=== PATIENT | female | born 1945 | race Caucasian/White ===

== ENCOUNTER 2018-04-08 04:45 | Inpatient (IN) ==
--- NOTE | 2018-03-27 12:49 | Anesthesiology Consultation ---
Date of Service March 27, 2018 Assessment & Plan (1) Encounter for pre-operative examination: Plan: *pt with limited neck extension--possible difficult intubation. Chart Review Chart Review: Acceptable Risk for Surgery and Patient seen in Pre Admission Testing Teaching & Discussion Instructed NPO after midnight before surgery, except medications with 15 cc of water. Medication instructions provided according to the PAT guidelines. History Surgery Operation Date: 04/08/18 08:45 Proposed Procedures p Right Anterior Total Hip Arthroplasty - Jaspal Carroll DO Height/Weight Height: 5 ft 3 in Weight: 69.4 kg Allergies Allergy/AdvReac Type Severity Reaction Status Date / Time codeine Allergy Unknown RASH Verified 03/24/18 11:02 Medications Home Medications Medication Instructions Recorded Confirmed Last Taken ascorbic acid (vitamin C) [Vitamin 1 g PO 03/24/18 03/24/18 Unknown C] aspirin [Aspir-81] 81 mg PO 03/24/18 03/24/18 Unknown biotin 1 mg PO QA 03/24/18 03/24/18 Unknown calcium carbonate-vitamin D3 1 tab PO 03/24/18 03/24/18 Unknown [Calcium 500 + D] cranberry 400 mg PO QAM 03/24/18 03/24/18 Unknown glucosamine-chondroitin 1 tab PO QA 03/24/18 03/24/18 Unknown multivitamin 1 cap PO QAM 03/24/18 03/24/18 Unknown omega 4-qkt-pau-fish oil [Fish Oil] 1 cap PO QAM 03/24/18 03/24/18 Unknown vitamin E 400 unit PO QA 03/24/18 03/24/18 Unknown zinc 50 mg PO QA 03/24/18 03/24/18 Unknown Past Medical History Medical History History of breast cancer S/P LUMPECTOMY AND RADIATION JAN 2003. Osteoarthritis Past Surgical History Surgical History History of arthroscopy B/L KNEES History of cataract extraction with lens replacement B/L History of foot surgery B/L BUNIONECTOMY History of hysterectomy History of lumpectomy Past Anesthesia History No Hx of Anesthesia Complications and No Family Hx of Anesthesia Complications *PATIENT WITH VERY LIMITED NECK EXTENSION, POSSIBLE DIFFICULT INTUBATION. History of PONV Yes (remote, no issues with more recent surgeries) Motion Sickness Screening History of Motion Sickness: No Social History Smoking Status: Never smoker Do You Dip or Chew Tobacco: No Hx Alcohol Use: Yes Alcohol type: wine alcohol intake frequency: a few times a week Hx Substance Use: No substance use type: does not use Exercise / Class Metabolic Activity II 4-5 Yardwork/Stairs/Walk up hill (no SOB or CP with stairs, limited 2/2 pain recently) Review of Systems Pt denies any recent chest pain, shortness of breath, palpitations, cough, fever or URI. Physical Exam Vital Signs BP: 128/72 P: 80bpm SPO2: 96% RA T: 98.0 F R: 12 ENMT Mouth: + dentures (two partial upper dentures) and + dental restorations (few crowns); no chipped teeth and no loose teeth Thyromental Distance: > or= 3.5 Finger Breadths (3.5) Mallampati Class: I Neck normal visual inspection and + limited neck extension (very limited) Respiratory normal respiratory effort Auscultation: lungs clear to auscultation bilaterally Cardiovascular Rate/Rhythm: regular rate and regular rhythm Heart Sounds: no murmur Vessels: no carotid bruit Extremities: no edema Testing Electrocardiogram Date: 03/27/18 Findings: + NSR @ (69) Chest X-Ray Date: 03/27/18 Findings: + NAD Laboratory Results 03/27/18 13:11 03/27/18 13:11 Blood Type A Positive 03/27/18 13:11 Antibody Screen NEGATIVE 03/27/18 13:11 PT 10.1 Seconds (9.0-12.0) 03/27/18 13:11 INR 1.0 (0.9-1.1) 03/27/18 13:11 APTT 25.2 Seconds (21.0-31.0) 03/27/18 13:11 Hemoglobin A1c 5.7 % (4.5-5.6) H 03/27/18 13:11 Urine Color Yellow 03/27/18 13:11 Urine Appearance Clear (Clear) 03/27/18 13:11 Urine pH 7.5 (4.5-7.5) 03/27/18 13:11 Ur Specific [place] 1.013 (1.000-1.030) 03/27/18 13:11 Urine Protein Negative (Negative) 03/27/18 13:11 Urine Glucose (UA) Negative (Negative) 03/27/18 13:11 Urine Ketones Negative (Negative) 03/27/18 13:11 Urine Nitrite Negative (Negative) 03/27/18 13:11 Ur Leukocyte Esterase Negative (Negative) 03/27/18 13:11
--- NOTE | 2018-03-27 13:01 | PAT Medication Instructions ---
Medication Instructions Date of Service March 27, 2018 Home Medications ascorbic acid (vitamin C) 1 g PO HS aspirin [Aspir-81] 81 mg PO HS biotin 1 mg PO QAM calcium carbonate-vitamin D3 1 tab PO HS cranberry 400 mg PO QAM glucosamine-chondroitin 1 tab PO QAM multivitamin 1 cap PO QAM omega 6-kik-nwk-fish oil [Fish Oil] 1 cap PO QAM vitamin E 400 unit PO QAM zinc 50 mg PO QAM STOP taking 2 weeks before surgery cranberry 400 mg PO QAM glucosamine-chondroitin 1 tab PO QAM omega 1-bgf-drm-fish oil [Fish Oil] 1 cap PO QAM vitamin E 400 unit PO QAM If surgery is within 2 weeks, stop taking as soon as possible. DO NOT take the morning of surgery biotin 1 mg PO QAM multivitamin 1 cap PO QAM zinc 50 mg PO QAM Take evening before surgery ascorbic acid (vitamin C) 1 g PO HS aspirin [Aspir-81] 81 mg PO HS calcium carbonate-vitamin D3 1 tab PO HS Other Notes If you have any questions please call us at [phone] or [phone] or [phone] or [phone]
--- NOTE | 2018-03-27 13:45 | XRay Report ---
TWO VIEW CHEST CLINICAL HISTORY: Preoperative examination. FINDINGS: PA and lateral chest radiographs are obtained. No prior studies are available for compariso n at the time of dictation. The examination is degraded by portable technique and patient rotation. The cardiomediastinal silhouette is unremarkable. No airspace consolidation or pleural effusion is id entified. There is no pneumothorax. The skeletal structures are osteopenic. Degenerative change is no sammi throughout the thoracic spine. The bony thorax appears intact. IMPRESSION: No active disease in the chest. Electronically signed by: Jovanny Oneal M.D. 03/27/2018 1:43 PM
[2018-03-27 13:49] LABS: Basophils # (auto) 0.03 K/uL (0-0.2); Basophils % (auto) 0.5 %; Eosinophils # (auto) 0.11 K/uL (0-0.5); Eosinophils % (auto) 1.7 %; Hemoglobin 14.8 g/dL (12.0-16.0); Immature Granulocytes # (auto) 0.02 K/uL (0.00-0.02); Immature Granulocytes % (auto) 0.3 %; Lymphocytes % (auto) 26.5 %; Mean Corpuscular Hgb Conc 33.6 g/dL (32-36); Mean Corpuscular Volume 89.1 fL (80-100); Mean Platelet Volume 9.5 fL (7.4-10.4); Monocytes # (auto) 0.62 K/uL (0.11-0.59); Monocytes % (auto) 9.7 %; Neutrophils # (auto) 3.93 K/uL (1.4-6.5); Neutrophils % (auto) 61.3 %; Platelet Count 356 K/uL (130-400); RDW Coefficient of Variation 12.7 % (11.5-14.5); RDW Standard Deviation 41.2 fL (36.4-46.3); Red Blood Count 4.94 M/uL (4.2-5.4); White Blood Count 6.41 K/uL (4.8-10.8)
[2018-03-27 13:58] LABS: Appearance Urine Clear (Clear); Bilirubin Urine Negative (Negative); Color Urine Yellow; Glucose Urine UA Negative (Negative); Ketones Urine Negative (Negative); Leukocyte Esterase Urine Negative (Negative); Nitrite Urine Negative (Negative); Protein Urine Negative (Negative); Specific Gravity Urine 1.013 (1.000-1.030); Urobilinogen Urine Negative (Negative); pH Urine 7.5 (4.5-7.5)
[2018-03-27 14:00] LABS: Partial Thromboplastin Time 25.2 Seconds (21.0-31.0); Prothrombin Time 10.1 Seconds (9.0-12.0)
[2018-03-27 14:25] LABS: Estimated Average Glucose 117 mg/dl
[2018-03-27 15:12] LABS: Albumin Level 3.6 gm/dl (3.4-5.0); BUN Creatinine Ratio 17.5 (10-20); Calcium 8.9 mg/dl (8.5-10.1); Creatinine Clr Calc Pharmacy 66.1 ml/min; Est GFR (African American) 95.1; Est GFR (Non-African American) 82.1; Potassium 3.9 mmol/L (3.5-5.1)
--- NOTE | 2018-04-07 15:10 | History & Physical Report ---
Date of Service April 07, 2018 Assessment & Plan (1) Degenerative joint disease (DJD) of hip: I have indicated the patient for right anterior total hip replacement. The risks, benefits and complications of surgery were explained to the patient which include but not limited to infection, acute blood loss, DVT/PE, injury to nerves, vessels, bone, soft tissue, arthrofibrosis, chronic pain, failure of the prosthesis, hip dislocation, leg length discrepancy, need for additional surgery, cardiac and pulmonary events and . The patient wished to proceed with surgery and informed consent was obtained at this time. We will plan for ASA BID post-operatively for DVT prophylaxis. Upon discharge the patient will be discharged home with home health services. Appropriate clearances by PCP were obtained. History of Present Illness Chief Complaint: Right hip pain/djd Primary Care Provider: Sukhjinder Winn The patient is a 72 year old female who presents with complaints of severe right hip pain and DJD. The patient has failed outpatient conservative treatments to this point which included NSAIDs, IA corticosteroid injections, home exercise/walking program. The patient's pain and limited function have progressed to the point where they severely hinder their activities of daily living and they no longer tolerate exercise programs. They are requesting to proceed with total hip replacement surgery. Allergies Allergy/AdvReac Type Severity Reaction Status Date / Time codeine Allergy Unknown RASH Verified 04/08/18 06:01 Home Medications Home Medications Medication Instructions Recorded Confirmed Type ascorbic acid (vitamin C) [Vitamin 1 g PO 03/24/18 04/08/18 History C] aspirin [Aspir-81] 81 mg PO 03/24/18 04/08/18 History biotin 1 mg PO REPLACED BY [facility] 03/24/18 04/08/18 History calcium carbonate-vitamin D3 1 tab PO 03/24/18 04/08/18 History [Calcium 500 + D] cranberry 400 mg PO REPLACED BY [facility] 03/24/18 04/08/18 History glucosamine-chondroitin 1 tab PO REPLACED BY [facility] 03/24/18 04/08/18 History multivitamin 1 cap PO REPLACED BY [facility] 03/24/18 04/08/18 History omega 1-fkt-lqg-fish oil [Fish Oil] 1 cap PO REPLACED BY [facility] 03/24/18 04/08/18 History vitamin E 400 unit PO REPLACED BY [facility] 03/24/18 04/08/18 History zinc 50 mg PO REPLACED BY [facility] 03/24/18 04/08/18 History Past Med/Surg History Medical History History of breast cancer S/P LUMPECTOMY AND RADIATION JAN 2003. Osteoarthritis Surgical History History of arthroscopy B/L KNEES History of cataract extraction with lens replacement B/L History of foot surgery B/L BUNIONECTOMY History of hysterectomy History of lumpectomy Social History Current Living Situation: Alone Other Information That Helps Us Care for You: No Feels Safe at Home: Yes Safety Concerns: Feels Safe At This Time Smoking Status: Never smoker Do You Dip or Chew Tobacco: No Hx Alcohol Use: Yes Alcohol type: wine Alcohol Intake Frequency: a few times a week Hx Substance Use: No Beliefs That Will Affect Care: None Preferred Language: Yemeni Communication Ability: Effective Director Report Required: No Review of Systems All systems reviewed & are unremarkable except as noted in HPI & below Physical Exam 2 Physical Exam: RLE NVSI +EHL/FHL/TA/GS SILT grossly, +2 DP pulse, compartments soft NT, limited painful ROM of the hip. Constitutional: WD/WN, vitals as above Eyes: PERRL, conjunctivae normal, anicteric sclerae Neck: trachea midline, no thyromegaly Respiratory: normal respiratory effort, lungs clear to auscultation Cardiovascular: RRR, no murmur, no edema Gastrointestinal (Abdomen): normal bowel sounds, soft, nontender, no hepatosplenomegaly Musculoskeletal: no cyanosis or clubbing, extremities motor strength 5/5 Skin: no rashes, warm and dry Neurologic: patellar DTR's 2+ bilat, sensation intact Psychiatric: A+Ox3, euthymic affect Lymphatic: no cervical or axillary lymphadenopathy Results & Data Diagnostic Findings Multiple views of the hip demonstrates severe DJD with complete loss of the joint space. +osteophytes, +sclerosis, +subchondral cysts.
[2018-04-08] MEDS: LR 500ML BOLUS, THEN 15ML/HR IV SCH ×4 (05:40→17:00)
[2018-04-08] MEDS ORDERED: TRANEXAMIC ACID 1,000 MG **IV Pre-op IV SCH (06:00)
[2018-04-08] MEDS ORDERED: ROPIVACAINE 0.5% HCL/PF 150 MG, BUPIVACAINE 0.5% MPF 30 ML, EPINEPHrine 30MG/30ML (OR U... INFIL SCH (06:00)
[2018-04-08] MEDS ORDERED: CEFAZOLIN 1000MG 1,000 MG/7.5 ML SYR IV SCH (06:00)
[2018-04-08] MEDS ORDERED: CeleBREX 200 MG CAP PO SCH (06:00)
[2018-04-08] MEDS ORDERED: ACETAMINOPHEN 500 MG TAB PO SCH (06:00)
[2018-04-08] MEDS ORDERED: FAMOTIDINE 20 MG TAB PO SCH (06:00)
[2018-04-08] MEDS ORDERED: dexAMETHasone 4 MG TAB PO SCH (06:00)
[2018-04-08] MEDS ORDERED: GABAPENTIN 300 MG PO SCH (06:00)
[2018-04-08] MEDS ORDERED: BUPIVACAINE 0.5 % 5 MG/1 ML PF 10ML VIAL ONE (06:22)
[2018-04-08] MEDS ORDERED: TRANEXAMIC ACID 1,000 MG **IV Intra-op IV SCH (06:30)
[2018-04-08] MEDS ORDERED: PROPOFOL IV EMULSION 10 MG/ML 20 ML VIAL IV ONE ×3 (06:41→09:45)
[2018-04-08] MEDS ORDERED: MIDAZOLAM HCL 1 MG/ML 2ML VIAL ONE (06:42)
[2018-04-08] MEDS ORDERED: fentaNYL citrate 100 MCG/2 ML VIAL ONE (06:42)
[2018-04-08] MEDS ORDERED: PHENYLEPHRINE 100MCG/ML 5ML SYR IV PRN (06:49)
[2018-04-08] MEDS ORDERED: ePHEDrine sulfate 50 MG/ML AMP IV PRN (06:49)
[2018-04-08] MEDS ORDERED: KETOROLAC TROMETHAMINE 15 MG/ML VIAL IV PRN (06:49)
[2018-04-08] MEDS ORDERED: ONDANSETRON INJ 2 MG/ML 2 ML VIAL IV PRN ×2 (06:49→11:28)
[2018-04-08] MEDS ORDERED: ATROPINE SULFATE 0.1 MG/ML 10ML SYR IV PRN (06:49)
[2018-04-08] MEDS ORDERED: HYDROmorphone INJ 1 MG/ML SYRINGE IV PRN (06:49)
[2018-04-08] MEDS ORDERED: BACITRACIN INJ 50,000 UNIT VIAL ONE (06:53)
[2018-04-08] MEDS ORDERED: POVIDONE-IODINE OP SOLN 30 ML BTL ONE (06:53)
[2018-04-08] MEDS ORDERED: ORTHO JOINT ANESTHETIC ONE (06:53)
--- NOTE | 2018-04-08 07:10 | History & Physical Bridge Note ---
Date of Service April 08, 2018 History & Physical Bridge Note I have examined the patient, reviewed the History & Physical and in the interval since the performance of the History & Physical I have noted the following changes of clinical significance: no changes noted
[2018-04-08] MEDS ORDERED: ePHEDrine sulfate 50 MG/ML SYR ONE (09:08)
--- NOTE | 2018-04-08 09:54 | Fluoroscopy Report ---
INTRAOPERATIVE RADIOGRAPHS CLINICAL HISTORY: Right hip arthroplasty. Fluoroscopy time: 103 seconds. FINDINGS: 2 spot fluoroscopic views of the right hip from an arthroplasty procedure are presented. A bipolar right hip arthroplasty is in near anatomic alignment. 2 cortical lag screws transfix the acet abular cup. There is no evidence of fracture on these fluoroscopic views. Arthritic changes noted in the left hip. IMPRESSION: Intraoperative images from a right hip arthroplasty procedure as above. Electronically signed by: Jovanny Oneal M.D. 04/08/2018 9:53 AM
--- NOTE | 2018-04-08 09:58 | Post Operative Brief Note ---
Immediate Post Op Note v1 Date of Surgery April 08, 2018 Pre & Post Diagnosis Operation Date: 04/08/18 07:15 Pre-Op Diagnosis: Right Hip Osteoarthritis Post-Op Diagnosis: Right Hip Osteoarthritis Procedure Operation Date: 04/08/18 07:15 Actual Procedures p Right Anterior Total Hip Arthroplasty(Right) - Jaspal Carroll DO Surgeon Jaspal Carroll DO Meal Temperer Andre Gibson Estimated Blood Loss 75 Findings Consistent with Post-Op Diagnosis Fluids 800 Specimens femoral head Drains Hemovac Drain Anesthesia Type Spinal MAC Complications none Disposition Disposition: Recovery Room Overlapping Procedure I was present for: the critical portions of procedure. I was immediately available: during the entire case. Back up surgeon: was not required during procedure.
--- NOTE | 2018-04-08 11:16 | Anesthesiology Progress Note ---
Date of Service April 08, 2018 Anesthesia Post Procedure Vital Signs Vital Signs: Temp Pulse Pulse Resp BP Pulse Ox 04/08/18 11:00 36.3 C L 85 19 131/65 97 04/08/18 10:50 84 19 123/55 L 97 04/08/18 10:40 85 27 H 130/67 100 04/08/18 10:30 85 21 136/66 100 04/08/18 10:21 36.0 C L 91 H 18 126/67 94 04/08/18 06:12 37 C 71 18 145/79 H Pain Intensity Right Hip: Pain Intensity: 7 Notes Mental Status: alert / awake / arousable Patient Amnestic to Procedure: Yes Nausea / Vomiting: adequately controlled Pain: adequately controlled Airway Patency, RR, SpO2: stable & adequate BP & HR: stable & adequate Hydration State: stable & adequate Neuraxial Anesthesia: was administered and sensory block is resolving Anesthetic Complications: no major complications apparent
--- NOTE | 2018-04-08 11:25 | XRay Report ---
XR hip 1V RT w pelvis CLINICAL HISTORY: Postoperative evaluation. COMPARISON: None FINDINGS: Alignment of the total right hip arthroplasty is anatomic. There is no periprosthetic frac ture or unexpected radiopaque foreign body. There are 2 acetabular screws. IMPRESSION: Expected findings following total right hip arthroplasty. Electronically signed by: Madi Gonzales M.D. 04/08/2018 11:23 AM
[2018-04-08] MEDS ORDERED: BISACODYL 10 MG SUPP PR PRN (11:28)
[2018-04-08] MEDS ORDERED: NALOXONE HCL 0.4 MG/1 ML VIAL/CARP IV PRN (11:28)
[2018-04-08] MEDS ORDERED: MAGNESIUM HYDROXIDE SUSP 30 ML UDC PO PRN (11:28)
[2018-04-08] MEDS ORDERED: HYDROmorphone INJ 0.5 MG/0.5 ML SYR IV PRN (11:28)
[2018-04-08] MEDS ORDERED: OXYCODONE HCL IR 5 MG TAB (IMMEDIATE RELEASE) PO PRN (11:28)
[2018-04-08] MEDS ORDERED: METOCLOPRAMIDE HCL INJ 5 MG/ML 2 ML VIAL IV PRN (11:28)
--- NOTE | 2018-04-08 11:38 | Orthopedic Progress Note ---
Date of Service April 08, 2018 Assessment & Plan (1) Degenerative joint disease (DJD) of hip: s/p Right anterior LILIAN -ancef x 24 -DVT ppx: ASA BID, teds and SCDs -WBAT RLE -PT/OT -am labs -Postoperative x-ray demonstrate a well aligned well fixed orthopedic prosthesis without evidence of subsidence, fracture or dislocation. -DC planning Subjective Post Operative Progress Note Patient seen laying in bed, comfortable, denies complaints, pain well controlled , no acute issues. Physical Exam 2 Vital Signs (Past 24 Hours): Last Vital Signs Temp 36.3 C L 04/08/18 11:00 Pulse 85 04/08/18 11:00 Resp 19 04/08/18 11:00 BP 131/65 04/08/18 11:00 Pulse Ox 97 04/08/18 11:00 Physical Exam: RLE NVSI +EHL/FHL/TA/GS SILT grossly, +2 DP pulse, compartments soft NT, dressing cdi. Constitutional: WD/WN, vitals as above Eyes: PERRL, conjunctivae normal, anicteric sclerae Neck: trachea midline, no thyromegaly Respiratory: normal respiratory effort, lungs clear to auscultation Cardiovascular: RRR, no murmur, no edema Gastrointestinal (Abdomen): normal bowel sounds, soft, nontender, no hepatosplenomegaly Musculoskeletal: no cyanosis or clubbing, extremities motor strength 5/5 Skin: no rashes, warm and dry Neurologic: patellar DTR's 2+ bilat, sensation intact Psychiatric: A+Ox3, euthymic affect Lymphatic: no cervical or axillary lymphadenopathy
--- NOTE | 2018-04-08 11:53 | Operative Report ---
Post Operative Report Pre & Post Diagnosis Operation Date: 04/08/18 07:15 Pre-Op Diagnosis: Right Hip Osteoarthritis Post-Op Diagnosis: Right Hip Osteoarthritis Procedure Operation Date: 04/08/18 07:15 Actual Procedures p Right Anterior Total Hip Arthroplasty(Right) - Jaspal Carroll DO Surgeon Jaspal Carroll DO Emergency Department Physician Andre Gibson Estimated Blood Loss 75 Findings Consistent with Post-Op Diagnosis Specimens Femoral head Drains None Anesthesia Type Spinal MAC Complications none Disposition Disposition: Recovery Room Indications The patient is a 9-year-old female who presents with severe progressive right hip DJD who has failed outpatient conservative treatments. I indicated the patient for a total hip replacement and the risks and benefits were explained in detail which included but not limited to infection, bleeding, blood clot, damage to surrounding bone, nerves, vessels, soft tissue, hip dislocation, failure of the prosthesis, leg length discrepancy, need for additional surgery and . The patient agreed to proceed with replacement of the hip and informed consent was obtained. Appropriate clearances were obtained. Description of Procedure COMPONENTS USED: [employer] hip system: Acetabulum size 50, femur size 7 high offset, femoral head 32-3, liner 32 x 50, acetabular screw 25 mm and 30 mm. DESCRIPTION OF PROCEDURE: Following satisfactory spinal anesthesia, the patient was placed supine on the OR table. The left leg was placed in the well leg villanueva and the right leg in the traction device. The right leg was prepared with ChloraPrep and draped sterilely. Following a surgical time-out, an anterior approach in the interval between the sartorius and tensor muscles was completed. Circumflex femoral vessels were identified, tied and ligated. The anterior capsular fat pad was removed and the capsulotomy was performed revealing the arthritic femoral neck and head. A femoral neck cut was made with reciprocating saw and the bone fragments removed. The acetabular self- retraining retractor was placed. Acetabular reaming was completed under fluoroscopic guidance, a 50 shell was impacted into an anatomic position and secured with 2 dome screws. Local anesthetic was placed and following irrigation, the polyethylene liner was placed. The femur was placed into position of external rotation, extension and adduction. Femoral canal was prepared up to the size 7 high offset. Trial reduction with a -3 neck length head showed good soft tissue tension, leg lengths restored, and good fit and fill of the proximal canal using fluoroscopic landmarks. The hip was dislocated. The trial component was removed. The final implant was placed. The hip was irrigated with sterile saline soluation and reduced. A Betadine soak was performed. After 3 minutes, the hip was once more irrigated with copious sterile saline solution with bacitracin. Luanne- incisional soft tissue was injected utilizing [employer] which includes a combination of Ropivicaine 0.5% 150mg, Bupivicaine 0.5%/Epinephrine 1 :200,000 30ml, Toradol 30mg, Dexamethasone 4mg, Ketamine 10mg, Clonidine 100mcg and NSS 30ml solution. The capsule was then closed with 1-0 Vicryl interrupted figure of eight sutures. The fascia was closed with a running suture of 0 V-Loc , the subcutaneous tissues with 2-0 Vicryl and the skin with a running subcuticular stitch of 3-0 V-Loc. Dermabond prineo and a dry dressing, Prevena incisional vac were applied. The patient tolerated the procedure well and was transported to PACU in stable condition. Due to the complex nature of the procedure, the entire surgery was performed with the operational assistance of Andre Gibson PA-C. The assistant prosecuting attorney, under direct supervision, was involved in the actual performance of all aspects of the surgical procedure including patient positioning, hemostasis, tissue retraction, instrument management and wound closure. I attest to the content of the Intraoperative Record and any orders documented therein. Any exceptions are noted below.
[2018-04-08] MEDS: KETOROLAC TROMETHAMINE 15 MG/ML VIAL IV SCH ×2 (12:54→17:53)
[2018-04-08] MEDS: SODIUM CHLORIDE 0.9% 1000ML 1,000 ML IV SCH ×2 (12:54→19:16)
[2018-04-08] MEDS: ACETAMINOPHEN 500 MG TAB PO SCH ×2 (13:46→20:42)
[2018-04-08] MEDS: CEFAZOLIN 1000MG 1,000 MG/7.5 ML SYR IV SCH ×2 (14:00→22:03)
[2018-04-08] MEDS ORDERED: PNEUMOCOCCAL ADMINISTRATION CHARGE ONE (14:45)
[2018-04-08] MEDS ORDERED: INFLUENZA ADMINISTRATION CHARGE ONE (14:45)
[2018-04-08] MEDS ORDERED: PNEUMOCOCCAL POLYSACCHARIDES 25 MCG/0.5 ML VIAL/SYR IM ONE (14:45)
[2018-04-08] MEDS ORDERED: INFLUENZA VACCINE HIGH DOSE 65+ 0.5 ML SYR IM ONE (14:45)
[2018-04-08] MEDS: TRAMADOL HCL 50 MG TABLET PO PRN (17:56)
[2018-04-08] MEDS: DOCUSATE SODIUM 100 MG CAP PO SCH (20:38)
[2018-04-08] MEDS ORDERED: SENNA 8.6 MG TAB PO SCH (21:00)
[2018-04-09] MEDS: KETOROLAC TROMETHAMINE 15 MG/ML VIAL IV SCH ×2 (00:03→05:44)
[2018-04-09] MEDS: ACETAMINOPHEN 500 MG TAB PO SCH (05:44)
[2018-04-09 05:46] LABS: Basophils # (auto) 0.01 K/uL (0-0.2); Basophils % (auto) 0.1 %; Hematocrit (blood only) 36.9 % (37-47); Hemoglobin 12.3 g/dL (12.0-16.0); Immature Granulocytes # (auto) 0.03 K/uL (0.00-0.02); Immature Granulocytes % (auto) 0.2 %; Lymphocytes # (auto) 1.61 K/uL (1.2-3.4); Lymphocytes % (auto) 11.8 %; Mean Corpuscular Hgb Conc 33.3 g/dL (32-36); Mean Corpuscular Volume 89.8 fL (80-100); Mean Platelet Volume 9.2 fL (7.4-10.4); Monocytes # (auto) 1.54 K/uL (0.11-0.59); Monocytes % (auto) 11.3 %; Neutrophils # (auto) 10.46 K/uL (1.4-6.5); Neutrophils % (auto) 76.6 %; Platelet Count 299 K/uL (130-400); RDW Coefficient of Variation 12.8 % (11.5-14.5); RDW Standard Deviation 41.7 fL (36.4-46.3); Red Blood Count 4.11 M/uL (4.2-5.4); White Blood Count 13.65 K/uL (4.8-10.8)
[2018-04-09 06:11] LABS: BUN Creatinine Ratio 26.6 (10-20); Calcium 8.4 mg/dl (8.5-10.1); Creatinine Clr Calc Pharmacy 59.9 ml/min; Est GFR (Non-African American) 72.5; Potassium 4.7 mmol/L (3.5-5.1)
--- NOTE | 2018-04-09 07:56 | Orthopedic Progress Note ---
Date of Service April 09, 2018 Assessment & Plan (1) Degenerative joint disease (DJD) of hip: s/p Right anterior LILIAN POD#1 -ancef x 24 -DVT ppx: ASA BID, teds and SCDs -WBAT RLE -PT/OT -am labs - hgb 12.3 -Postoperative x-ray demonstrate a well aligned well fixed orthopedic prosthesis without evidence of subsidence, fracture or dislocation. -DC planning - home with HH Subjective Post Operative Progress Note Patient seen standing at bedside, comfortable, denies complaints, pain well controlled on tramadol, no acute issues. Physical Exam 2 Vital Signs (Past 24 Hours): Last Vital Signs Temp 36.7 C 04/09/18 07:00 Pulse 85 04/09/18 07:00 Resp 18 04/09/18 07:00 BP 148/75 H 04/09/18 07:00 Pulse Ox 99 04/09/18 07:00 Physical Exam: RLE NVSI +EHL/FHL/TA/GS SILT grossly, +2 DP pulse, compartments soft NT, dressing cdi. Constitutional: WD/WN, vitals as above
[2018-04-09] MEDS: DOCUSATE SODIUM 100 MG CAP PO SCH (08:51)
[2018-04-09] MEDS ORDERED: MULTIVITAMIN TAB PO SCH (09:00)
[2018-04-09] MEDS ORDERED: ASPIRIN 325 MG ECTAB PO SCH (09:00)
[2018-04-09] MEDS: TRAMADOL HCL 50 MG TABLET PO PRN (11:48)
[2018-04-09] MEDS ORDERED: CeleBREX 200 MG CAP PO SCH (21:00)
--- NOTE | 2018-04-09 21:27 | Discharge Summary ---
Date of Service April 09, 2018 Admission HPI Per Admitting Provider The patient is a 72 year old female who presents with complaints of severe right hip pain and DJD. The patient has failed outpatient conservative treatments to this point which included NSAIDs, IA corticosteroid injections, home exercise/walking program. The patient's pain and limited function have progressed to the point where they severely hinder their activities of daily living and they no longer tolerate exercise programs. They are requesting to proceed with total hip replacement surgery. Principal Diagnosis Right anterior total hip replacement Discharge Exam RLE NVSI +EHL/FHL/TA/GS SILT grossly, +2 DP pulse, compartments soft NT, dressing cdi. Constitutional WD/WN, vitals as above Eyes PERRL, conjunctivae normal, anicteric sclerae Neck trachea midline, no thyromegaly Respiratory normal respiratory effort, lungs clear to auscultation Cardiovascular RRR, no murmur, no edema Gastrointestinal (Abdomen) normal bowel sounds, soft, nontender, no hepatosplenomegaly Musculoskeletal no cyanosis or clubbing, extremities motor strength 5/5 Skin no rashes, warm and dry Neurologic patellar DTR's 2+ bilat, sensation intact Psychiatric A+Ox3, euthymic affect Lymphatic no cervical or axillary lymphadenopathy Discharge Data Allergies Allergy/AdvReac Type Severity Reaction Status Date / Time codeine Allergy Unknown RASH Verified 04/08/18 06:01 Consultations 04/09/18 08:00 Consult Case Management - Discharge Planning Routine Procedures Performed Operation Date: 04/08/18 07:15 Actual Procedures p Right Anterior Total Hip Arthroplasty(Right) - Jaspal Carroll DO Ordered Studies 04/08/18 07:15 FL fluoroscopy <1hr Routine FL hip RT 1V Routine Hospital Course (1) Degenerative joint disease (DJD) of hip: The patient is a 72 -year-old female who presents with long standing history of severe right hip DJD and failed outpatient conservative treatments including NSAIDs, bracing, injections and home walking/exercise program. The patient's symptoms have progressed to the point where it has been difficult to perform even normal activities of daily living. I indicated the patient for a right anterior total hip arthroplasty, the risks, benefits and complications of the procedure include but not limited to infection , bleeding, damage to bone, nerves, vessels, surrounding soft tissue, may develop blood clots, loss of function, leg length discrepancy, dislocation, failure of the components, loosening of the components, the need for additional surgery and . The patient wished to proceed with surgery at this time and informed consent was obtained. Hospital Course: On 03/08/18 the patient was taken to the operating room, adequate anesthesia administered and underwent a right anterior total hip arthroplasty. The patient tolerated the procedure well and was taken to the PACU in stable condition. Post-operatively the patient was started on a DVT ppx medication and given appropriate IV antibiotics. Consults were placed to physical therapy , occupational therapy and case management. On POD#1, the patient did well overnight and their pain was well controlled. Labs were drawn and the Hgb was 12.3. The patient progressed well with PT. Dressings were changed at this time and the incision was clean, dry and intact. The patients hospital stay was relatively uneventful and they were deemed stable by the orthopedic team and consultants to be discharged home with HH on . Discharge Instructions: Upon discharge the patient may weight bear as tolerates through their operative extremity. They were instructed to keep the incision clean and dry at all times. The patient may shower but should not submerge the incision, avoid bathing, pools and hot tubes. The patient was given a script for pain medication and should take as instructed. The patient was given a script for DVT ppx ASA 325mg twice daily and should take as directed. The patient was instructed to not drive or travel for long distances until cleared to do so. If the patient develops any symptoms of fevers, chills, nausea, vomiting, increased redness, swelling, pain or drainage from the surgical site, they should notify the office and/or proceed to the nearest emergency room. The patient should follow up in 10-14 days after surgery for their routine post- operative follow-up appointment and should call the office to confirm the date and time. s/p Right anterior LILIAN POD#1 -ancef x 24 -DVT ppx: ASA BID, teds and SCDs -WBAT RLE -PT/OT -am labs - hgb 12.3 -Postoperative x-ray demonstrate a well aligned well fixed orthopedic prosthesis without evidence of subsidence, fracture or dislocation. -DC planning - home with HH Total Time Total Time Spent Total Time Spent (In Minutes): >60 minutes Total Time Includes: Examination of the Patient, Discharge Planning, Medication Reconciliation and Communication With Other Providers Discharge Plan Discharge Items Patient Disposition: Home - Home Health Services Reason For Visit: Right Hip Osteoarthritis Discharge Diagnosis: Right anterior total hip replacement Condition: Good Discharge Goals: Decrease discomfort, Improve disease control, Improve function and Increase independence Activity: Per 'Additional Instructions' section Lifting: Wait until after follow-up appointment Bathing Comment: No bathing, hot tubs or pools Sexual Activity: Wait until after follow-up appointment Driving/Machine Use Comment: Do not drive till cleared by your surgeon Weightbearing: Right weightbearing Non-emergency contact: Primary Care Provider and Surgeon Call non-emergency contact if: you have any medication questions, your symptoms worsen, your pain is not controlled, your pain is worsening, your pain is unusual for you, your pain is concerning for you, you have a fever, your temperature is above 101, your wound has increased redness, your wound has increased drainage and your wound pain has increased Follow-up/Referrals: Sukhjinder Winn [Primary Care Provider] - Diet: Regular Addtl Provider Instructions: ACTIVITY RECOMMENDATIONS: SELF CARE INSTRUCTIONS AFTER TOTAL HIP REPLACEMENT : Direct Anterior Approach Until the incision and soft tissues around your hip have healed, there is a possibility that the hip prosthesis could dislocate. A. Hip flexion ( Up & Down out of chair or steps ) may be difficult. This is normal. B. Numbness in front of the thigh is also normal for a few weeks. C. Use hand rails when walking on stairs. D. Wear low heeled shoes with non-slip soles. E. Be sure that your floors are free of things that could trip you - throw rugs , electrical cords, small objects. Avoid wet and waxed floors, especially with crutches and canes. F. Try to walk several times a day with rest periods between. G. Continue with all the exercises taught to you in the hospital. Again, make walking a part of your daily routine. SPECIAL CARE INSTRUCTIONS: VERY IMPORTANT TO READ AND REVIEW A. You may still be at risk for phlebitis and blood clots. 1. Wear surgical stockings (ALEXA hose) for 2 weeks after surgery to improve circulation and reduce swelling. 2. Take Aspirin 325mg twice daily for 4 weeks or as directed by your doctor. This is your blood thinner. 3. High risk patients may be prescribed a stronger blood thinner if necessary. 4. If you are on Coumadin normally, your family doctor/lacer and tier should monitor your blood work. Expect a phone call the day of or the day after bloodwork is drawn to adjust your dosage. B. You must take antibiotics before having dental work, bladder, bowel and other surgery. Your doctor will provide you with a permanent card to carry describing precautions. C. Call [facility] if you have a fever, redness or swelling around the incision, cloudy drainage from incision, or sudden increase in pain in your hip, not relieved by your regular pain medication. D. Please call the office at if you have any concerns or questions about your operation or recovery. * YOU MAY SHOWER, NO TUB BATHS UNTIL CLEARED BY YOUR DOCTOR. - Keep an extra close eye on the top portion of your incision. Be sure to keep clean & dry. * WEAR ALEXA HOSE 20 HOURS PER DAY FOR 2 WEEKS. * YOU MAY PROGRESS FROM A WALKER, TO A CANE, TO INDEPENDENT AT YOUR OWN PACE. * MOST PATIENTS WILL HAVE HOME NURSING FOR THERAPY. IF YOU DECIDE TO DO OUTPATIENT PHYSICAL THERAPY, PLEASE SCHEDULE THIS 3 TIMES PER WEEK. * DERMABOND Prineo- This is a mesh tape dressing that is covered with glue. It should remain in place until the incision is properly healed, usually 10-14 days. This dressing is designed to naturally slough off. You may trim the excess mesh tape as it peels off. Incision may be briefly wet in a shower. Dry immediately by blotting with a clean, dry towel. Do not bath or swim until instructed by your doctor. Do not scratch, rub, or pick at the dressing. Do not apply any topical ointments or lotions until dressing is completely removed and/or instructed by your doctor. There may be a small piece of suture material at one end of your incision. Do not pull or trim this. If it is bothersome or catching on clothing, you may cover it with a band-aid. *Prevena incisional vac is a special dressing covering your incision. This dressing provides a sterile dry environment while you are healing. The dressing is to be left in place for 7 days post-operatively. Your home nurse or surgeon will remove. If you develop any redness or blisters or have any questions notify your surgeon immediately. FOLLOW UP VISIT: If appointment is not already scheduled: Please call [facility] to make a follow-up appointment for 2 weeks after your surgery at . Prescriptions: New acetaminophen [Pain Reliever] 500 mg Tablet 1,000 mg PO Q8 PRN (Reason: pain) Qty: 90 RF: 0 aspirin 325 mg Tablet,Delayed Release (Dr/Ec) 325 mg PO BID 28 Days Qty: 56 RF: 0 celecoxib [Celebrex] 200 mg Capsule 200 mg PO BID PRN (Reason: pain/inflammation ) 14 Days Qty: 28 RF: 0 sennosides [Senokot] 8.6 mg Tablet 17.2 mg PO HS PRN (Reason: constipation) 14 Days Qty: 28 RF: 0 tramadol 50 mg Tablet 50 - 100 mg PO Q6H MDD 6 tabs PRN (Reason: pain) Qty: 30 RF: 0 Continue ascorbic acid (vitamin C) [Vitamin C] 1,000 mg Tablet 1 g PO HS RF: 0 cranberry 400 mg Capsule 400 mg PO QAM RF: 0 zinc 50 mg Tablet 50 mg PO QAM RF: 0 multivitamin Capsule 1 cap PO QAM RF: 0 vitamin E 400 unit Capsule 400 unit PO QAM RF: 0 calcium carbonate-vitamin D3 [Calcium 500 + D] 500 mg(1,250mg) -200 unit Tablet 1 tab PO HS RF: 0 omega 5-mmy-srp-fish oil [Fish Oil] 1,000 mg (120 mg-180 mg) Capsule 1 cap PO QAM RF: 0 biotin 1 mg Capsule 1 mg PO QAM RF: 0 glucosamine-chondroitin 500-200 mg Tablet Extended Release 1 tab PO QAM RF: 0 Discontinued aspirin [Aspir-81] 81 mg Tablet,Delayed Release (Dr/Ec) 81 mg PO HS RF: 0 Stand-Alone Forms: [facility], Opioid Pain Management Discharge Orders: Discharge Order (Routine); Ordered 04/09/18 Ordered By: Jaspal Carroll Admission Data Admit Date/Time: 04/08/18 10:29 Attending Provider: Jaspal Carroll Admit Provider: Jaspal Carroll Primary Care Provider: Sukhjinder Winn Service: Surgical Services Other DC Date/Time DO NOT enter until pt leaves facility: 04/09/18 13:22
== END 2018-04-09 13:22 | disposition home health service (06) | DRG 470 ==
LOC: ASU 04:45 → 3E 10:29